=== PATIENT | male | born 1960 | race Caucasian/White ===

== ENCOUNTER 2022-06-27 14:48 | Outpatient (CLI) | payer OTHER, SELFPAY ==
--- NOTE | 2022-06-27 15:02 | ECG_ITS ---
Measurements Intervals [place] Rate: 63 P: 18 VT: 195 QRS: -26 QRSD: 113 T: 31 QT: 372 QTc: 383 Interpretive Statements SINUS RHYTHM BORDERLINE LEFT AXIS DEVIATION [QRS AXIS < -20] POOR R-WAVE PROGRESSION ABNORMAL ECG NO PREVIOUS ECG AVAILABLE FOR COMPARISON Electronically Signed On 06-28-2022 13:50:14 CDT by Florentin Jefferson M.D.
[2022-06-27 15:27] LABS: Anion Gap 12 mmol/L (8-16); Blood Urea Nitrogen 21 mg/dL (9-20); Calcium 9.3 mg/dL (8.4-10.2); Carbon Dioxide 29 mmol/L (22-30); Chloride 103 mmol/L (98-107); Estimated Glomerular Filt Rate > 60; Glucose 118 mg/dL (65-110); Potassium 4.1 mmol/L (3.4-5.0); Sodium 144 mmol/L (137-145)
== END 2022-06-27 14:49 | disposition home or self-care (01) ==
LOC: ANHSURGERY 14:54
PROVIDERS: Anesthesiology; PCP Internal Medicine; Visit Provider Surgery
DX: E11.9 Type 2 diabetes mellitus without complications (principal); I10 Essential (primary) hypertension; Z01.818 Encounter for other preprocedural examination; R94.31 Abnormal electrocardiogram [ECG] [EKG]
CPT/HCPCS: 36415; 80048; 93005

== ENCOUNTER 2022-07-04 15:59 | Observation (INO) | payer OTHER, SELFPAY ==
[2022-06-26 08:08] VITALS: BMI 38.0
--- NOTE | 2022-06-26 08:09 | PC.NURSE ---
Addendum entered by Marcos Roy RN 06/26/22 08:18: Shower morning of surgery with Brunolilia. Original Note: Report to the Outpatient Waiting Room, entrance under the green pavilion located off [facility], at time _0900_ on date _[id number]_. Planned Procedure Time: _1100_. Time changes happen often and if your time is changed the preop area will call you the afternoon before. - You and your visitor will be asked to self-screen and do not enter if you have any COVID symptoms. - We encourage only one visitor and NO visitors under age 16 are allowed at this time. Your visitor will receive communication by the phone number that is given day of service. - The patient visitor is requested to social distance or may leave the building when not with patient due to restrictions. - A mask is required within the hospital. Patients may have clear liquids (water, carbonated beverages, clear teas, apple juice) until 3 hours prior to surgery with a maximum of 20 ounces. - No food from midnight until time of surgery Take the following medications with a SIP of water the morning of surgery: __Amlodipine Medications to discontinue per physician ____Says was instructed to stop Xarelto 2 days before surgery. Date to take last dose Please no make-up, nail ghanaian, hairspray, perfume, deodorant, or body powder the day of surgery. No jewelry (including any body piercings) or valuables the day of surgery, leave them at home. Please take a shower or bath the night before, or the morning of, surgery with an antibacterial soap. Wear comfortable, loose fitting clothing. - Jewelry must be removed prior to entering the operating room. Rings and piercings that are not removed may be cut off. - The hospital will not accept responsibility for valuables. - Please leave all valuables, including medications, at home the day of surgery. If you are going home after surgery, a licensed home delivery driver must drive you home. - NO public transportation without another adult. - We recommend that an adult stay with you for 24 hours following discharge. - We also recommend that you do not drive, make important decision, drink alcoholic beverages, or take any drugs that were not prescribed by your health care provider for at least 24 hours after your discharge time. Follow any additional instructions given to you from your surgeon. If you or anyone in your household have experienced Covid symptoms in the past week, please notify your surgeon or the nurse liaison at the phone number below for possible testing. Telephone instructions given to _Patient___and asked if any additional questions and then verbalized understanding. Patient advised to call surgeon office or pre surgery nurse liaison [phone] if any additional questions.
[2022-07-03] VITALS (15 sets, daily range): BP systolic 132–161; BP diastolic 79–94; PULSE 56–72; RESP 12–18; TEMP 36.1–36.7; O2SAT 94–100
--- NOTE | 2022-07-03 09:54 | WPDHPUPDATE1 ---
History and Physical Update Update Date/Time: 07/03/22 09:54 History and Physical has been reviewed, including an updated exam of the patient. There are NO changes in the patient's condition. Risks, benefits, and alternatives have been discussed and questions answered. Patient agrees to proceed with procedure.
[2022-07-03] MEDS: LACTATED RINGERS 1,000 ML 30 ML IV CONT ×2 (09:58→12:10)
--- NOTE | 2022-07-03 10:02 | WPDANESEPPF ---
Anes - Initial Pre Proc Eval Procedure: Operation Date: 07/03/22 11:00 Proposed Procedures p Laparoscopic Repair Umbilical Hernia - Montez Figueroa MD Date/Time: 07/03/22 10:02 Surgeon: Montez Figueroa MD Pre Op Diagnosis: Umb Hernia Patient Data Age: 61 Gender: M Height: 1.7 m Weight: 109 kg Last Vital Signs Temp 36.1 C L 07/03/22 09:19 Pulse 56 L 07/03/22 09:19 Resp 18 07/03/22 09:19 BP 161/87 H 07/03/22 09:19 Pulse Ox 99 07/03/22 09:19 O2 Del Method Room Air 07/03/22 09:19 Allergies Allergy/AdvReac Type Severity Reaction Status Date / Time No Known Allergies Allergy Verified 06/26/22 08:00 Home Medications Medication Instructions Recorded Confirmed Type amlodipine 5 mg tablet 5 mg PO DAILY 05/22/22 06/26/22 History atorvastatin 10 mg tablet 10 mg PO DAILY 05/22/22 06/26/22 History empagliflozin 10 mg tablet 10 mg PO DAILY 05/22/22 06/26/22 History (Jardiance) losartan 100 mg tablet 100 mg PO DAILY 05/22/22 06/26/22 History metformin 500 mg tablet 500 mg PO DAILY 05/22/22 06/26/22 History rivaroxaban 20 mg tablet (Xarelto) 20 mg PO DAILY 05/22/22 06/26/22 History Patient hx anesthesia problems: none Family hx anesthesia problems: none Results Review: All pre-operative results and documents have been reviewed as part of the pre-operative evaluation. [facility] Past Medical History Medical History Diabetes High cholesterol History of blood clots Hypertension Surgical History Surgical History S/P appendectomy S/P carpal tunnel release S/P ear surgery S/P spinal fusion Family History Family History Mother Cancer Unknown Cancer Cerebrovascular accident Social History Social History Smoking packs per day: 0.5 Smoking cigarettes per day: 10.0 Years smoked: 9 Smoking pack-years: 4.50 Smoking status: Never smoker Tobacco type: cigarettes Smoking end date: 06/26/88 Alcohol intake: current Living arrangements: with family Spiritual care concerns: No Anes - Eval Final PreProcedure Day of Procedure 07/03/22 10:02 Patient weight: obese Heart: regular rate and rhythm Lungs: clear to auscultation Airway: Mallampati scale class II Neurological: alert and oriented Last oral intake: >/= 8 hours ASA classification: III Emergent: no Anesthetic plan: proceed Anesthesia type and monitoring: general ETT and standard monitoring Results Review: All pre-operative results and documents have been reviewed as part of the pre-operative evaluation. Informed Consent: The patient's anesthetic plan and its attendant risks and benefits were discussed with the patient/family/POA. Questions were solicited and answers provided to the satisfaction of the patient/family/POA.
[2022-07-03] MEDS: KETOROLAC 15 MG/ML VIAL (*BKC) IV PUSH (10:07)
[2022-07-03] MEDS: ACETAMINOPHEN 500 MG TABLET 1000 MG PO (10:07)
[2022-07-03] MEDS: ceFAZolin 2 GM/D5W 50 ML 2 GM/50 ML BAG IVPB (10:11)
[2022-07-03 10:25] LABS: Glucose Point of Care 130 mg/dl (65-105)
[2022-07-03] MEDS: BUPIVACAINE/EPINEPHRINE 0.25% 50 ML VIAL 30 ML INFILTRATE (11:08)
[2022-07-03] MEDS: fentaNYL CITRATE INJ (*CRX) 100 MCG/2 ML VIAL 25 MCG IV PUSH ×7 (12:19→13:01)
--- NOTE | 2022-07-03 12:23 | W.PM.PROC2 ---
Procedure Note - Detailed Date of Procedure 07/03/22 Pre-op Diagnosis Umb Hernia Post-op Diagnosis Same Procedure Performed laparoscopic repair umbilical hernia with 15 x [address] underlay mesh Surgeon Montez Figueroa MD [employer] [facility] STUBBS Anesthesia General and Local ( 0.25% Marcaine with epinephrine) Indications patient is a 61-year-old man with an enlarging and symptomatic umbilical hernia. The overlying skin is dusky. It is too tender to reduce. He is taken to surgery now for laparoscopic repair of his umbilical hernia Findings defect was relatively small about 2 x 3 cm. Omentum and properitoneal fat was incarcerated in the hernia. Description of Procedure Patient was taken to surgery and induced into general anesthesia. Germain catheter had been placed. The entire abdomen was prepped and draped. Initial trocar was a left subcostal 5 mm port. We then placed a left lateral mid abdominal 5 mm port as well as a left lower quadrant 10 11 port. The initial trocar was then applied Medical optical trocar. The others were under direct visualization. Local anesthetic was infiltrated prior to placement of each of the trocars. We were easily able to see the hernia defect. Using blunt and sharp dissection and minimal cautery, the omentum was reduced. The hernia sac was then reduced and I carefully dissected the sac from the hernia defect and also removed some of the properitoneal fat in the caudal direction from the abdominal wall. This tissue was then placed in an Endo-Catch bag retrieved through the 10 11 left lower quadrant trocar site. We then turned our attention back to the umbilical hernia defect. I marked its location on the [place]. A 15 x [address] hernia mesh was chosen. I laid the mesh over the hernia defect and marked the outline of the mesh. I then marked where each of the 4 transfascial sutures would be placed. I then used 2-0 [place] suture and placed for equidistant suture in the mesh to serve as our transfascial sutures. The mesh was then rolled and introduced into the abdominal cavity. It was unrolled and oriented appropriately. Transfascial sutures were then brought out through each of the anticipated sites using the IntoOutdoors suture Passer. Mesh position was checked after each suture was placed. Eventually all the transfascial sutures had been positioned in the mesh appeared to be in good position. The transfascial sutures were then tied. Before starting to use the Tacker, another 5 mm port was placed in the right upper abdomen using similar technique as been used previously. The OptiFix AT tacker was then used and the mesh was securely attached to the anterior abdominal wall using double crown technique. This went well and the mesh was in very good position and securely adherent to the abdominal wall. We then used the [place] cone and an 0 Vicryl suture. The fascia at the 10 11 left lower quadrant trocar site was closed. We then evacuated CO2 and removed the trocar sleeves. Skin wounds were closed with subcuticular 4-0 Monocryl skin suture. Transfascial suture sites were closed with Exofin adhesive. Exofin was also used to dress all the laparoscopic trocar incisions. Germain catheter was removed. Patient was awakened and taken to recovery in good condition. Sponge needle counts were correct x2. Implants 15 x [address] mesh Estimated Blood Loss -10 Drains No Packing No Pathology None sent Complications No immediate complications Condition Stable Disposition PACU [facility] Billing Surgery - Charge Forward: Surgery Billing (Laparoscopic repair umbilical hernia with mesh)
[2022-07-03 12:24] LABS: Glucose Point of Care 155 mg/dl (65-105)
[2022-07-03] MEDS: HYDROmorphone HCL INJ (*CRX) 1 MG/ML SYR IV PUSH (13:10)
--- NOTE | 2022-07-03 13:45 | PC.NURSE ---
This patient, Kenneth Steiner, was admitted to 3 [facility] Surg Room 303-01. Patient/family oriented to hospital policies and general routines including ID bracelet, bed and alarms, visiting hours, pain management, procedures, bathroom and other care routines, personal items, smoking policy, room service/diet, and visiting hours. Information on how to activate the Rapid Response Team has been discussed. Patient/Family are encouraged to report perceived risks to care and to ask questions if they do not understand what they are told or what they should do.
[2022-07-03] MEDS: MORPHINE SULFATE (*CRX) 4 MG/ML INJ IV PUSH (13:58)
[2022-07-03] MEDS: IBUPROFEN IV 800 MG/200 ML 800 MG/200 ML BAG 125 MG IVPB (15:42)
[2022-07-03] MEDS: HYDROcodone/acetaminophen (*CRX) 10-325 MG TABLET 1 TAB PO (15:59)
[2022-07-03 16:36] LABS: Glucose Point of Care 239 mg/dl (65-105)
[2022-07-03] MEDS: INSULIN ASPART (*BKC) 100 UNITS/ML SUB-Q (17:09)
[2022-07-03] MEDS: FAMOTIDINE 20 MG TABLET PO (20:42)
[2022-07-03] MEDS: SENNA/DOCUSATE SODIUM TABLET 2 TAB PO (20:43)
[2022-07-03] MEDS: IBUPROFEN IV 800 MG/200 ML 800 MG/200 ML BAG 200 MG IVPB (20:43)
--- NOTE | 2022-07-03 20:46 | PM.IMCN ---
Assessment and Plan Assessment and plan (1) Umbilical hernia with obstruction, without gangrene: Code(s): K42.0 - Umbilical hernia with obstruction, without gangrene Status: Acute Assessment and Plan: Pain control DVT prophylaxis managed by surgery (2) Diabetes: Code(s): E11.9 - Type 2 diabetes mellitus without complications Status: Acute Assessment and Plan: Hold metformin S increased risk of lactic acidosis after surgery with metformin Started insulin sliding scale (3) Hypertension: Code(s): I10 - Essential (primary) hypertension Status: Acute Assessment and Plan: Continue amlodipine losartan (4) History of DVT (deep vein thrombosis): Code(s): Z86.718 - Personal history of other venous thrombosis and embolism Status: Acute Assessment and Plan: Resume Xarelto as soon as okay with surgery Plan SCD HPI Data of Consult Consult date: 07/03/22 Requesting Physician: Montez Figueroa MD Primary Care Provider: Nakul Dukes, Consult Narrative Narrative: Kenneth Steiner is a 61 year old male with past medical history of hypertension on amlodipine hyperlipidemia on atorvastatin diabetes mellitus metformin presented to the hospital for elective umbilical hernia repair patient had laparoscopic umbilical hernia repair today medicine was consulted for diabetes mellitus and hypertension management patient also has 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 Xarelto Review of Systems Review of Systems: Twelve system review was done negative except above PMFSH Past Medical History Medical History Diabetes High cholesterol History of blood clots Hypertension Surgical History Surgical History S/P appendectomy S/P carpal tunnel release S/P ear surgery S/P spinal fusion Family History Family History Mother Cancer Unknown Cancer Cerebrovascular accident Social History Social History Smoking packs per day: 0.5 Smoking cigarettes per day: 10.0 Years smoked: 9 Smoking pack-years: 4.50 Smoking status: Former smoker Tobacco type: cigarettes Smoking end date: 06/26/88 Alcohol intake: current Drinks per week: 2 Substance use: never Has the Lack of Transportation Kept You From Medical Appointments or From Getting Medications?: No Within the Past 12 Months, Were You Worried Whether Your Food Would Run Out Before You Got Money to Buy More?: Never True What is Your Housing Situation Today?: I Have Housing Are You Worried That in the Next 2 Months, You May Not Have Your Own Housing to Live In?: No Do You Have Trouble Paying Your Heating Or Electricity Bill?: No Do You Have Trouble Paying For Medicines?: No Are You Currently Unemployed and Looking for Work?: No Highest Level of Education Completed: Trade/Vocational Certificate Do You Have Trouble With Childcare or the Care of a Family Member?: No Living arrangements: with family Spiritual care concerns: No Meds Home Medications and Allergies Home Medications Medication Instructions Recorded Confirmed Type amlodipine 5 mg tablet 5 mg PO DAILY 05/22/22 06/26/22 History atorvastatin 10 mg tablet 10 mg PO DAILY 05/22/22 06/26/22 History empagliflozin 10 mg tablet 10 mg PO DAILY 05/22/22 06/26/22 History (Jardiance) losartan 100 mg tablet 100 mg PO DAILY 05/22/22 06/26/22 History metformin 500 mg tablet 500 mg PO DAILY 05/22/22 06/26/22 History rivaroxaban 20 mg tablet (Xarelto) 20 mg PO DAILY 05/22/22 06/26/22 History Allergies Allergy/AdvReac Type Severity Reaction Status Date / Time No Known Allergies Allergy Verified 06/26/22 08:00 Vital Signs Vital Signs - 24 hr 07/03/22 09:19 07/03/22 12:10
[2022-07-03 21:40] LABS: Basophils Percent Auto 0.2 % (0.2-1.2); Hematocrit 44.1 % (42.0-52.0); Hemoglobin 14.8 g/dL (14.0-18.0); Immature Granulocyte Absolute 0.05 K/mm3 (0.00-0.031); Immature Granulocyte Percent A 0.5 % (0-0.5); Lymphocytes Absolute Auto 1.02 K/mm3 (0.9-3.2); Lymphocytes Percent Auto 10.2 % (18.3-44.2); Mean Corpuscular HGB Conc 33.6 g/dl (32-36); Mean Corpuscular Hemoglobin 30.4 pg (26-34); Mean Corpuscular Volume 90.6 fl (80-100); Mean Platelet Volume 9.4 fl (7.4-10.4); Monocytes Absolute Auto 0.6 K/mm3 (0.1-0.6); Monocytes Percent Auto 6.2 % (2.6-8.5); Neutrophils Absolute Auto 8.3 K/mm3 (1.3-6.7); Neutrophils Percent Auto 82.9 % (45.5-73.1); Platelet Count Result 216 k/mm3 (150-375); Red Blood Count 4.87 M/mm3 (4.6-6.20); Red Cell Distribution Width 13.9 % (11.5-14.5)
[2022-07-03 21:52] LABS: Alanine Aminotransferase 42 U/L (6-50); Albumin Level 4.2 g/dL (3.5-5.1); Alkaline Phosphatase 74 U/L (38-126); Anion Gap 13 mmol/L (8-16); Aspartate Amino Transferase 37 U/L (17-59); Bilirubin,Total 0.6 mg/dL (0.2-1.3); Blood Urea Nitrogen 16 mg/dL (9-20); Calcium 8.1 mg/dL (8.4-10.2); Carbon Dioxide 25 mmol/L (22-30); Chloride 100 mmol/L (98-107); Estimated CRCL calculation 98 ml/min; Estimated Glomerular Filt Rate > 60; Glucose 208 mg/dL (65-110); Potassium 4.3 mmol/L (3.4-5.0); Sodium 138 mmol/L (137-145)
[2022-07-04] VITALS: BP 142/65; PULSE 71; RESP 18; TEMP 36.5; O2SAT 93
[2022-07-04] MEDS: IBUPROFEN IV 800 MG/200 ML 800 MG/200 ML BAG 200 MG IVPB ×4 (03:46→21:33)
[2022-07-04 04:00] VITALS: BP 129/66; PULSE 59; RESP 18; TEMP 36.1; O2SAT 95
[2022-07-04 06:22] LABS: Hemoglobin 13.8 g/dL (14.0-18.0); Mean Corpuscular HGB Conc 33.7 g/dl (32-36); Mean Corpuscular Volume 89.1 fl (80-100); Mean Platelet Volume 9.3 fl (7.4-10.4); Platelet Count Result 197 k/mm3 (150-375); Red Cell Distribution Width 13.9 % (11.5-14.5); White Blood Count 9.9 K/mm3 (4.5-10.0)
[2022-07-04 06:41] LABS: Alanine Aminotransferase 36 U/L (6-50); Albumin Level 3.8 g/dL (3.5-5.1); Alkaline Phosphatase 71 U/L (38-126); Anion Gap 12 mmol/L (8-16); Aspartate Amino Transferase 29 U/L (17-59); Bilirubin,Total 0.6 mg/dL (0.2-1.3); Blood Urea Nitrogen 15 mg/dL (9-20); Calcium 8.1 mg/dL (8.4-10.2); Carbon Dioxide 27 mmol/L (22-30); Chloride 101 mmol/L (98-107); Estimated CRCL calculation 98 ml/min; Estimated Glomerular Filt Rate > 60; Glucose 168 mg/dL (65-110); Potassium 3.9 mmol/L (3.4-5.0); Sodium 140 mmol/L (137-145)
[2022-07-04 07:46] LABS: Glucose Point of Care 165 mg/dl (65-105)
[2022-07-04] MEDS: LOSARTAN POTASSIUM 100 MG TABLET PO (08:44)
[2022-07-04] MEDS: ATORVASTATIN 10 MG TABLET PO (08:44)
[2022-07-04] MEDS: amLODIPine BESYLATE 5 MG TABLET PO (08:44)
[2022-07-04] MEDS: FAMOTIDINE 20 MG TABLET PO ×2 (08:44→21:34)
[2022-07-04] MEDS: ENOXAPARIN 40 MG/0.4 ML SYRINGE SUB-Q (08:45)
[2022-07-04] MEDS: polyethylene glycoL 3350 17 GM POWD.PACK PO (08:45)
[2022-07-04] MEDS: EMPAGLIFLOZIN 10 MG TABLET PO (08:47)
--- NOTE | 2022-07-04 08:54 | PM.PNGS ---
Progress Note: A&P Assessment and Plan (1) Umbilical hernia with obstruction, without gangrene: Code(s): K42.0 - Umbilical hernia with obstruction, without gangrene Status: Chronic Assessment and Plan: repair intact and healing well. Having typical postoperative pain. Requiring IV Caldolor and p.r.n. analgesics. Up walking today. Continue solid food. Doing well postop day 1. (2) Diabetes: Code(s): E11.9 - Type 2 diabetes mellitus without complications Status: Chronic Assessment and Plan: Blood sugar 165 this morning. Continue p.r.n. 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: Code(s): Z79.01 - halfway (current) use of anticoagulants Status: Chronic Assessment and Plan: continue to hold Xarelto (4) History of DVT (deep vein thrombosis): Code(s): Z86.718 - Personal history of other venous thrombosis and embolism Status: Chronic Assessment and Plan: on prophylactic dose of Lovenox Subjective Subjective Date/Time Seen: 07/04/22 08:54 Post Op day: 1 Patient reports: still having pain, tolerating a regular diet, no flatus, no bowel movement and afebrile Exam Const: General: comfortable, no acute distress, alert and awake Nutritional Appearance: overweight Orientation/consciousness: patient oriented x3 and No confusion GI: Inspection: incision ( Tender but dry and intact), obesity ( Protuberant abdomen) and visible herniation ( small seroma at hernia site, no hernia.) GI Palp: Yes Soft to palpation and Yes Tenderness to palpation present (GI) Auscultation: Hypoactive bowel sounds present Objective Data Vital Signs Vital Signs: Vital Signs - 24 hr 07/03/22 09:19 07/03/22 12:10 07/03/22 12:25 Temperature 36.1 C L 36.7 C Pulse Rate 56 L 66 67 Respiratory Rate 18 13 14 Blood Pressure 161/87 H 148/85 H 149/91 H Pulse Oximetry 99 100 99 Oxygen Delivery Room Air Simple Face Mask Room Air Oxygen Flow Rate 8 07/03/22 12:40 07/03/22 12:50 07/03/22 13:05 Temperature Pulse Rate 63 65 65 Respiratory Rate 14 18 12 Blood Pressure 157/94 H 154/86 H 152/87 H Pulse Oximetry 94 94 95 Oxygen Delivery Room Air Room Air Nasal Cannula Oxygen Flow Rate 2 07/03/22 13:20 07/03/22 13:35 07/03/22 13:45 Temperature 36.6 C Pulse Rate 69 66 68 Respiratory Rate 18 14 12 Blood Pressure 141/85 H 156/88 H 144/88 H Pulse Oximetry 94 96 97 Oxygen Delivery Nasal Cannula Nasal Cannula Oxygen Flow Rate 2 2 07/03/22 14:00 07/03/22 14:30 07/03/22 15:30 Temperature 36.4 C L 36.5 C 36.4 C L Pulse Rate 70 61 65 Respiratory Rate 14 14 14 Blood Pressure 148/86 H 132/86 147/83 H Pulse Oximetry 96 96 96 Oxygen Delivery Oxygen Flow Rate 07/03/22 13:51 07/03/22 16:00 07/03/22 20:00 Temperature 36.6 C Pulse Rate 72 Respiratory Rate 18 Blood Pressure 140/79 Pulse Oximetry 96 96 95 Oxygen Delivery Nasal Cannula Room Air Oxygen Flow Rate 2 07/03/22 20:00 07/04/22 00:00 07/04/22 04:00 Temperature 36.5 C 36.1 C L Pulse Rate 72 71 59 L Respiratory Rate 18 18 18 Blood Pressure 142/65 H 129/66 Pulse Oximetry 95 93 95 Oxygen Delivery Room Air Oxygen Flow Rate Intake/Output Intake/Output: Intake & Output 07/01/22 07/02/22 07/03/22 07/04/22 23:59 23:59 23:59 23:59 Intake Total 990 0 Output Total 900 Balance 990 -900 Meds/Results Medications: Active Medications Generic Name Dose Route Start Last Admin Trade Name Otfq PRN Reason Stop Dose Admin Acetaminophen 500 mg 07/03/22 13:38 Acetaminophen 500 Mg Tablet PO Q6H PRN Mild Pain (1-3) or Fever Hydrocodone Bitart/Acetaminophen 1 tab 07/03/22 13:38 Hydrocodone/Acetaminophen (*Crx) 5-325 Mg Tablet PO Q4H PRN Pain Rated 4-6 Hydrocodone Bitart/Acetaminophen 1 tab 07/03/22 13:38 07/03/22 15:59 Hydrocodone/Acetaminophen (*Crx) 10-325 Mg Tablet PO 1 tab Q6H PRN Admini
--- NOTE | 2022-07-04 09:17 | WPDANESPN ---
Anes - Prog Note Post-Op Date/Time: 07/04/22 09:17 Vital Signs: Last Vital Signs Temp 36.1 C L 07/04/22 04:00 Pulse 59 L 07/04/22 04:00 Resp 18 07/04/22 04:00 BP 129/66 07/04/22 04:00 Pulse Ox 95 07/04/22 04:00 O2 Del Method Room Air 07/03/22 20:00 O2 Flow Rate 2 07/03/22 13:51 Pain Score (VAS): 0 I/O: Intake & Output 07/03/22 07/04/22 07/04/22 23:59 07:59 15:59 Intake Total 640 0 Output Total 900 Balance 640 -900 Laboratory Tests 07/04/22 05:42 07/04/22 05:42 07/03/22 07/03/22 07/03/22 10:05 12:20 16:31 WBC RBC Hgb Hct MCV MCH MCHC RDW Plt Count MPV Immature Gran % (Auto) Neut % (Auto) Lymph % (Auto) [place] % (Auto) Eos % (Auto) Baso % (Auto) Lymph # (Auto) [place] # (Auto) Eos # (Auto) Baso # (Auto) Abs Immat Gran (auto) Absolute Neuts (auto) Absolute Nucleated RBC Nucleated RBC % Sodium Potassium Chloride Carbon Dioxide Anion Gap BUN Creatinine Estim Creat Clear Calc Estimated GFR Glucose POC Capillary Glucose 130 H 155 H 239 H Calcium Total Bilirubin AST ALT Alkaline Phosphatase Total Protein Albumin 07/03/22 07/03/22 07/04/22 21:19 21:19 05:42 WBC 10.0 9.9 RBC 4.87 4.60 Hgb 14.8 13.8 L Hct 44.1 41.0 L MCV 90.6 89.1 MCH 30.4 30.0 MCHC 33.6 33.7 RDW 13.9 13.9 Plt Count 216 197 MPV 9.4 9.3 Immature Gran % (Auto) 0.5 Neut % (Auto) 82.9 H Lymph % (Auto) 10.2 L [place] % (Auto) 6.2 Eos % (Auto) 0.0 Baso % (Auto) 0.2 Lymph # (Auto) 1.02 [place] # (Auto) 0.6 Eos # (Auto) 0.0 Baso # (Auto) 0.0 Abs Immat Gran (auto) 0.05 H Absolute Neuts (auto) 8.3 H Absolute Nucleated RBC 0.0 Nucleated RBC % 0.0 Sodium 138 Potassium 4.3 Chloride 100 Carbon Dioxide 25 Anion Gap 13 BUN 16 Creatinine 0.80 Estim Creat Clear Calc 98 Estimated GFR > 60 Glucose 208 H POC Capillary Glucose Calcium 8.1 L Total Bilirubin 0.6 AST 37 ALT 42 Alkaline Phosphatase 74 Total Protein 7.0 Albumin 4.2 07/04/22 07/04/22 05:42 07:42 WBC RBC Hgb Hct MCV MCH MCHC RDW Plt Count MPV Immature Gran % (Auto) Neut % (Auto) Lymph % (Auto) [place] % (Auto) Eos % (Auto) Baso % (Auto) Lymph # (Auto) [place] # (Auto) Eos # (Auto) Baso # (Auto) Abs Immat Gran (auto) Absolute Neuts (auto) Absolute Nucleated RBC Nucleated RBC % Sodium 140 Potassium 3.9 Chloride 101 Carbon Dioxide 27 Anion Gap 12 BUN 15 Creatinine 0.80 Estim Creat Clear Calc 98 Estimated GFR > 60 Glucose 168 H POC Capillary Glucose 165 H Calcium 8.1 L Total Bilirubin 0.6 AST 29 ALT 36 Alkaline Phosphatase 71 Total Protein 7.0 Albumin 3.8 Patient Feedback: Patient satisfied with anesthetic care.
[2022-07-04 11:22] LABS: Glucose Point of Care 204 mg/dl (65-105)
[2022-07-04] MEDS: INSULIN ASPART (*BKC) 100 UNITS/ML SUB-Q (11:50)
--- NOTE | 2022-07-04 13:47 | PM.IMPN ---
Progress Note: A&P Assessment and Plan (1) Umbilical hernia with obstruction, without gangrene: Code(s): K42.0 - Umbilical hernia with obstruction, without gangrene Status: Chronic Assessment and Plan: POD#1 with laproscopic repair of umbilical hernia with mesh. Pain reasonably well controlled. Increase activity as tolerated. Diet started. Recovering well. (2) Diabetes: Code(s): E11.9 - Type 2 diabetes mellitus without complications Status: Chronic Assessment and Plan: The patient's blood glucose was reviewed on 07/04 Glucose remains reasonably well controlled. Metformin remains on hold. Continue Empagliflozin. Continue AccuCheks covering with sliding scale. Hypoglycemia protocol available as needed. Continue to hold metformin. Check A1c (3) Hypertension: Code(s): I10 - Essential (primary) hypertension Status: Acute Assessment and Plan: Patient's blood pressure was reviewed on 07/04 Blood pressure elevated at times related to pain. Will continue current medications. Continue to monitor (4) History of DVT (deep vein thrombosis): Code(s): Z86.718 - Personal history of other venous thrombosis and embolism Status: Chronic Assessment and Plan: Resume Xarelto as soon as okay with surgery Plan DVT Prophylaxis: lovenox Subjective Date/time seen: 07/04/22 13:47 Interval history: 61yo male with DM and HTN here for elective hernia repair. Slept poorly. Voiding normally. Eating okay. No CP or SOB. Flatus but no DM. Increased pain with activity to 6-7/10 Exam Narrative: AF 96.9 129/66 59 18 95% ra Gen - NARD Chest - CTA bilaterally, nml RR CV - RRR S1/S2 Abd - Soft, diffusely tender. Incisions clean, dry and intact. Ext - No pedal edema Psych - Nml mood and affect Skin - Warm and dry Objective Data Vital Signs Vital Signs: Vital Signs - 24 hr 07/03/22 14:00 07/03/22 14:30 07/03/22 15:30 Temperature 97.5 F L 97.7 F 97.5 F L Pulse Rate 70 61 65 Respiratory Rate 14 14 14 Blood Pressure 148/86 H 132/86 147/83 H Pulse Oximetry 96 96 96 Oxygen Delivery Oxygen Flow Rate 07/03/22 13:51 07/03/22 16:00 07/03/22 20:00 Temperature 97.8 F Pulse Rate 72 Respiratory Rate 18 Blood Pressure 140/79 Pulse Oximetry 96 96 95 Oxygen Delivery Nasal Cannula Room Air Oxygen Flow Rate 2 07/03/22 20:00 07/04/22 00:00 07/04/22 04:00 Temperature 97.7 F 96.9 F L Pulse Rate 72 71 59 L Respiratory Rate 18 18 18 Blood Pressure 142/65 H 129/66 Pulse Oximetry 95 93 95 Oxygen Delivery Room Air Oxygen Flow Rate 07/04/22 08:45 Temperature Pulse Rate Respiratory Rate Blood Pressure Pulse Oximetry Oxygen Delivery Room Air Oxygen Flow Rate Intake/Output Intake/Output: Intake & Output 07/01/22 07/02/22 07/03/22 07/04/22 23:59 23:59 23:59 23:59 Intake Total 990 640 Output Total 900 Balance 990 -260 Meds/Results Medications: Active Medications Generic Name Dose Route Start Last Admin Trade Name Freq PRN Reason Stop Dose Admin Acetaminophen 500 mg 07/03/22 13:38 Acetaminophen 500 Mg Tablet PO Q6H PRN Mild Pain (1-3) or Fever Hydrocodone Bitart/Acetaminophen 1 tab 07/03/22 13:38 Hydrocodone/Acetaminophen (*Crx) 5-325 Mg Tablet PO Q4H PRN Pain Rated 4-6 Hydrocodone Bitart/Acetaminophen 1 tab 07/03/22 13:38 07/03/22 15:59 Hydrocodone/Acetaminophen (*Crx) 10-325 Mg Tablet PO 1 tab Q6H PRN Administration Pain Rated 7-10 Amlodipine Besylate 5 mg 07/04/22 09:00 07/04/22 08:44 Amlodipine Besylate 5 Mg Tablet PO 5 mg DAILY RACHAEL Administration Atorvastatin Calcium 10 mg 07/04/22 09:00 07/04/22 08:44 Atorvastatin 10 Mg Tablet PO 10 mg DAILY RACHAEL Administration Dextrose 12.5 gm 07/03/22 13:38 Dextrose 50% 25 Gm/50 Ml Syringe IV PUSH PRN PRN Hypoglycemia Protocol Empagliflozin 10 mg
[2022-07-04 14:27] VITALS: BP 171/73; PULSE 64; RESP 16; TEMP 36.7; O2SAT 98
[2022-07-04] MEDS: HYDROcodone/acetaminophen (*CRX) 10-325 MG TABLET 1 TAB PO ×2 (14:39→21:42)
[2022-07-04 16:35] LABS: Glucose Point of Care 182 mg/dl (65-105)
[2022-07-04 20:00] VITALS: BP 124/64; PULSE 62; RESP 18; TEMP 36.3; O2SAT 96
[2022-07-04] MEDS: SENNA/DOCUSATE SODIUM TABLET 2 TAB PO (21:34)
[2022-07-04 21:47] LABS: Glucose Point of Care 138 mg/dl (65-105)
[2022-07-05 04:00] VITALS: BP 128/72; PULSE 55; RESP 16; TEMP 36.2; O2SAT 96
[2022-07-05] MEDS: IBUPROFEN IV 800 MG/200 ML 800 MG/200 ML BAG 200 MG IVPB (04:11)
[2022-07-05 06:40] LABS: Basophils Percent Auto 0.4 % (0.2-1.2); Eosinophils Absolute Auto 0.2 K/mm3 (0-0.3); Eosinophils Percent Auto 2.4 % (0-4.4); Hematocrit 39.1 % (42.0-52.0); Hemoglobin 13.3 g/dL (14.0-18.0); Immature Granulocyte Absolute 0.03 K/mm3 (0.00-0.031); Immature Granulocyte Percent A 0.4 % (0-0.5); Lymphocytes Absolute Auto 2.47 K/mm3 (0.9-3.2); Lymphocytes Percent Auto 31.8 % (18.3-44.2); Mean Corpuscular Hemoglobin 30.6 pg (26-34); Mean Corpuscular Volume 89.9 fl (80-100); Mean Platelet Volume 9.3 fl (7.4-10.4); Monocytes Absolute Auto 0.7 K/mm3 (0.1-0.6); Monocytes Percent Auto 9.1 % (2.6-8.5); Neutrophils Absolute Auto 4.3 K/mm3 (1.3-6.7); Neutrophils Percent Auto 55.9 % (45.5-73.1); Platelet Count Result 166 k/mm3 (150-375); Red Blood Count 4.35 M/mm3 (4.6-6.20); White Blood Count 7.8 K/mm3 (4.5-10.0)
[2022-07-05 06:52] LABS: Alanine Aminotransferase 32 U/L (6-50); Albumin Level 3.6 g/dL (3.5-5.1); Alkaline Phosphatase 65 U/L (38-126); Anion Gap 10 mmol/L (8-16); Aspartate Amino Transferase 25 U/L (17-59); Bilirubin,Total 0.7 mg/dL (0.2-1.3); Blood Urea Nitrogen 15 mg/dL (9-20); Carbon Dioxide 30 mmol/L (22-30); Chloride 102 mmol/L (98-107); Estimated CRCL calculation 98 ml/min; Estimated Glomerular Filt Rate > 60; Glucose 110 mg/dL (65-110); Potassium 3.6 mmol/L (3.4-5.0); Sodium 142 mmol/L (137-145)
[2022-07-05 07:35] LABS: Hemoglobin A1C 7.4 % (<5.7)
[2022-07-05 07:59] LABS: Glucose Point of Care 113 mg/dl (65-105)
--- NOTE | 2022-07-05 09:39 | PM.DS ---
DS: Admitting Diagnosis Discharge Date 07/05/2022 Admitting Diagnosis umbilical hernia obesity history DVT chronic anticoagulation essential hypertension non-insulin dependent diabetes DS: Discharge Diagnosis Discharge Diagnosis (1) Umbilical hernia with obstruction, without gangrene: Code(s): K42.0 - Umbilical hernia with obstruction, without gangrene Status: Chronic Assessment and Plan: status post laparoscopic repair with 15 x [address] underlay mesh 07/03/[address] 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 (5) Hypertension: Code(s): I10 - Essential (primary) hypertension Status: Acute (6) Diabetes: Code(s): E11.9 - Type 2 diabetes mellitus without complications Status: Chronic DS: Summary Hospital Course Hospital Course: Patient is a 61-year-old man who was seen in the office with a several year history of an umbilical hernia. This had been getting larger and was now associated with some pain particularly a pinching or stinging sensation. It is worse with activity. He was taken to surgery on the day of admission 07/03/2022 and laparoscopic repair of this umbilical hernia with 15 x [address] underlay mesh was performed. Patient has a history of DVTs and takes Xarelto chronically. This was held preoperatively and was not through started throughout his hospitalization but plans are to restart tomorrow 07/06/2022. Patient had expected amount of postoperative discomfort after surgery. This required IV NSAIDs as well as IV narcotic analgesics. He was fairly comfortable on oral analgesics on 07/05/2022. He is still ambulating slowly but is able to ambulate safely and independently. He is tolerating food without difficulty. He is discharged on 07/05/2022 in good condition. He was seen by the hospitalist service during his admission for assistance in managing his diabetes and hypertension. He is discharged on his previous medications. Status at Discharge Functional status at discharge: independent ambulation Overall status at discharge: patient is progressing back to baseline Time Spent with Patient Time attestation: Total time spent providing and/or coordinating discharge services: Time spent: Less than 30 minutes DS: Data Data Completed and Pending Labs on day of discharge: Labs from last 24 hours 07/05/22 07/05/22 07/05/22 07:55 06:03 06:03 WBC RBC Hgb Hct MCV MCH MCHC RDW Plt Count MPV Immature Gran % (Auto) Neut % (Auto) Lymph % (Auto) [place] % (Auto) Eos % (Auto) Baso % (Auto) Lymph # (Auto) [place] # (Auto) Eos # (Auto) Baso # (Auto) Abs Immat Gran (auto) Absolute Neuts (auto) Absolute Nucleated RBC Nucleated RBC % Sodium 142 Potassium 3.6 Chloride 102 Carbon Dioxide 30 Anion Gap 10 BUN 15 Creatinine 0.80 Estim Creat Clear Calc 98 Estimated GFR > 60 Glucose 110 POC Capillary Glucose 113 H Hemoglobin A1c 7.4 H Calcium 8.0 L Total Bilirubin 0.7 AST 25 ALT 32 Alkaline Phosphatase 65 Total Protein 6.0 L Albumin 3.6 07/05/22 07/04/22 07/04/22 06:03 21:32 16:27 WBC 7.8 RBC 4.35 L Hgb 13.3 L Hct 39.1 L MCV 89.9 MCH 30.6 MCHC 34.0 RDW 14.0 Plt Count 166 MPV 9.3 Immature Gran % (Auto) 0.4 Neut % (Auto) 55.9 Lymph % (Auto) 31.8 [place] % (Auto) 9.1 H Eos % (Auto) 2.4 Baso % (Auto) 0.4 Lymph # (Auto) 2.47 [place] # (Auto) 0.7 H Eos
[2022-07-05] MEDS: EMPAGLIFLOZIN 10 MG TABLET PO (09:42)
[2022-07-05] MEDS: ENOXAPARIN 40 MG/0.4 ML SYRINGE SUB-Q (09:42)
[2022-07-05] MEDS: amLODIPine BESYLATE 5 MG TABLET PO (09:42)
[2022-07-05] MEDS: LOSARTAN POTASSIUM 100 MG TABLET PO (09:42)
[2022-07-05] MEDS: ATORVASTATIN 10 MG TABLET PO (09:42)
[2022-07-05] MEDS: FAMOTIDINE 20 MG TABLET PO (09:42)
[2022-07-05] MEDS: HYDROcodone/acetaminophen (*CRX) 10-325 MG TABLET 1 TAB PO (09:43)
[2022-07-05] MEDS: polyethylene glycoL 3350 17 GM POWD.PACK PO (09:43)
[2022-07-05 11:45] LABS: Glucose Point of Care 147 mg/dl (65-105)
--- NOTE | 2022-07-05 15:25 | PM.IMPN ---
Progress Note: A&P Assessment and Plan (1) Umbilical hernia with obstruction, without gangrene: Code(s): K42.0 - Umbilical hernia with obstruction, without gangrene Status: Chronic Assessment and Plan: POD#2 with laproscopic repair of umbilical hernia with mesh. Pain worse today but he did get behind on his pain medications. Increase activity as tolerated. Recovering well. He feels ready for discharge. (2) Diabetes: Code(s): E11.9 - Type 2 diabetes mellitus without complications Status: Chronic Assessment and Plan: A1c 7.4. The patient's blood glucose was reviewed on 07/05 Glucose remains reasonably well controlled. Metformin remains on hold. Continue Empagliflozin. Continue AccuCheks covering with sliding scale. Hypoglycemia protocol available as needed. (3) Hypertension: Code(s): I10 - Essential (primary) hypertension Status: Acute Assessment and Plan: Patient's blood pressure was reviewed on 07/05 Blood pressure elevated at times related to pain but overall better controlled. Will continue current medications. Continue to monitor (4) History of DVT (deep vein thrombosis): Code(s): Z86.718 - Personal history of other venous thrombosis and embolism Status: Chronic Assessment and Plan: Resume Xarelto as soon as okay with surgery Plan Okay for discharge from medical standpoint. Encourage patient to return to the ED if he has increasing abdominal pain, fevers or recurrent chest pain. He voiced understanding of this. He is very clear that this chest discomfort is GI related. Subjective Date/time seen: 07/05/22 15:25 Interval history: 61yo male with DM and HTN here for elective hernia repair. Patient had localized (one finger to the left lower chest) pain. Occurred last night. He has had this before related to constipation and gas. He has had cardiac workup in the past without concerns. His abd pain is worse but he is trying to use less pain meds. Exam Narrative: AF 97.2 128/72 55 16 96% ra Gen - NARD Chest - CTA bilaterally, nml RR CV - RRR S1/S2 Abd - Soft, distended, diffusely tender. Incisions clean, dry and intact. Ext - trace pedal edema Psych - Nml mood and affect Skin - Warm and dry Objective Data Vital Signs Vital Signs: Vital Signs - 24 hr 07/04/22 20:00 07/04/22 20:00 07/05/22 04:00 Temperature 97.3 F L 97.2 F L Pulse Rate 62 55 L Respiratory Rate 18 16 Blood Pressure 124/64 128/72 Pulse Oximetry 96 96 Oxygen Delivery Room Air Intake/Output Intake/Output: Intake & Output 07/02/22 07/03/22 07/04/22 07/05/22 23:59 23:59 23:59 23:59 Intake Total 990 3170 840 Output Total 900 Balance 990 2270 840 Meds/Results Medications: Active Medications Generic Name Dose Route Start Last Admin Trade Name Freq PRN Reason Stop Dose Admin Acetaminophen 500 mg 07/03/22 13:38 Acetaminophen 500 Mg Tablet PO Q6H PRN Mild Pain (1-3) or Fever Hydrocodone Bitart/Acetaminophen 1 tab 07/03/22 13:38 Hydrocodone/Acetaminophen (*Crx) 5-325 Mg Tablet PO Q4H PRN Pain Rated 4-6 Hydrocodone Bitart/Acetaminophen 1 tab 07/03/22 13:38 07/05/22 09:43 Hydrocodone/Acetaminophen (*Crx) 10-325 Mg Tablet PO 1 tab Q6H PRN Administration Pain Rated 7-10 Amlodipine Besylate 5 mg 07/04/22 09:00 07/05/22 09:42 Amlodipine Besylate 5 Mg Tablet PO 5 mg DAILY RACHAEL Administration Atorvastatin Calcium 10 mg 07/04/22 09:00 07/05/22 09:42 Atorvastatin 10 Mg Tablet PO 10 mg DAILY RACHAEL Administration Dextrose 12.5 gm 07/03/22 13:38 Dextrose 50% 25 Gm/50 Ml Syringe IV PUSH PRN PRN Hypoglycemia Protocol Empagliflozin 10 mg 07/04/22 09:00 07/05/22 09:42 Empagliflozin 10 Mg Tablet PO 10 mg DAILY RACHAEL Administration Enoxaparin Sodium 40 mg 07/04/22 09:00 07/05/22 09:42 Enoxaparin 40 Mg/0.4 Ml Syringe
== END 2022-07-05 15:50 | disposition home or self-care (01) ==
LOC: ANHSURGERY 16:02 → ANH3MEDSUR 16:02
PROVIDERS: Internal Medicine; Admitting Provider Surgery; PCP Internal Medicine; Visit Provider Surgery
PROC: (CPT 49652; principal; 2022-07-03 11:00)
DX: K42.0 Umbilical hernia with obstruction, without gangrene (principal); E11.9 Type 2 diabetes mellitus without complications; I10 Essential (primary) hypertension; Z86.718 Personal history of other venous thrombosis and embolism; Z79.01 Long term (current) use of anticoagulants; E78.00 Pure hypercholesterolemia, unspecified; E66.3 Overweight; Z68.37 Body mass index [BMI] 37.0-37.9, adult; F10.90 Alcohol use, unspecified, uncomplicated; Z87.891 Personal history of nicotine dependence; Z79.84 Long term (current) use of oral hypoglycemic drugs; Z79.899 Other long term (current) drug therapy
CPT/HCPCS: 49652; 36415; 80048; 80053; 82948; 83036; 85025; 85027; 93005; A9270; C1781; G0378; J0690; J1100; J1170; J1650; J1741; J1815; J1885; J2250; J2270; J2405; J2704; J2710; J3010; J7120

== ENCOUNTER → 2023-07-17 15:35 | Outpatient (CLI) | payer OTHER, SELFPAY ==
--- NOTE | ~2023-07-17 | MR_ITS ---
EXAMINATION: MR shoulder RT wo con DATE: 07/17/2023 16:18 INDICATION: Chronic right shoulder pain. TECHNIQUE: Magnetic resonance imaging (MRI) of the right shoulder was performed without intravenous c ontrast. Sequences included axial PD-weighted FS FSE, coronal oblique PD-weighted FS FSE and T2-weigh sony FS FSE, and sagittal oblique T2-weighted FS FSE and T1-weighted FSE. COMPARISON: None. FINDINGS: Coracoacromial arch: The acromion undersurface is curved in morphology with anterior hook (type III). There is severe acro mioclavicular joint osteoarthritis including inferiorly directed osteophytes. No significant subacrom ial/subdeltoid bursitis. Rotator cuff: There is mild supraspinatus and infraspinatus tendinopathy. Teres minor tendon is normal. There is te ndinopathy and partial tear of subscapularis tendon. There is mild fatty atrophy of subscapularis mus nilesh belly. Biceps tendon and glenoid labrum: Biceps tendon is in bicipital groove. There is mild intra-articular biceps tendinopathy. There is a t ear of glenoid labrum from 11:00 to 12:00 (SLAP tear). Fluid: There is no glenohumeral joint effusion. Bones/cartilage: The glenoid cartilage is normal. Humeral head cartilage is normal. IMPRESSION: 1. Rotator cuff tendinopathy with partial tear of subscapularis tendon. 2. SLAP tear. 3. Severe acromioclavicular joint osteoarthritis. 4. Mild intra-articular biceps tendinopathy. Reviewed, dictated and finalized at location E. [facility]
== END ==
PROVIDERS: PCP Internal Medicine; Visit Provider Internal Medicine
DX: S43.431A Superior glenoid labrum lesion of right shoulder, initial encounter (principal); X58.XXXA Exposure to other specified factors, initial encounter; M19.011 Primary osteoarthritis, right shoulder
CPT/HCPCS: 73221